=== PATIENT | female | born 1965 | race Caucasian/White ===

== ENCOUNTER → 2020-05-29 | Outpatient (CLI) | payer OTHER ==
[~2020-05-29] MED LIST: ALBU8.5H8; AMINOPHYLLINE 25 MG/ML 10 ML VIAL IVP ONE; REGADENOSON 0.4 MG/5 ML PF SYRINGE IVP ONE; SESTAMIBI TC99M/UD ISOTOPE 1 EA INJ INJ ONE; VENL-68
[2020-05-29 09:10] VITALS: BP 120/70
[2020-05-29 09:46] VITALS: BP 142/79
== END | disposition home or self-care (01) ==
LOC: MSR 08:57
PROVIDERS: ATTEND Internal Medicine Cardiovascular Disease
DX: I05.8 Other rheumatic mitral valve diseases (principal); I10 Essential (primary) hypertension; I25.9 Chronic ischemic heart disease, unspecified
CPT/HCPCS: 78452; 93017; 93306; A9500